=== PATIENT | female | born 1990 | race Caucasian/White ===

== ENCOUNTER 2016-05-22 17:47 | Emergency (ER) | payer SELFPAY ==
[~2016-05-22 17:47] MED LIST: AMO500 PO; CEPH-443 PO; IBUP-1542 PO; KETO15CR TOP; PHEN-537 PO
[2016-05-23] MEDS ORDERED: LORA10CA PO (14:36)
[2016-05-23] MEDS ORDERED: AMO500 PO (14:36)
[2016-05-23] MEDS ORDERED: PSEU120T51 PO (14:36)
== END 2016-05-22 18:31 | disposition left against medical advice (07) ==
LOC: E/R 17:47
DX: Z53.21 Procedure and treatment not carried out due to patient leaving prior to being seen by health care provider (principal)

== ENCOUNTER 2016-05-23 12:29 | Emergency (ER) | payer OTHER ==
[~2016-05-23] VITALS: Ht 160 cm; Wt 81.5 kg
[2016-05-23 13:11] VITALS: Ht 160 cm; Wt 81.5 kg
[2016-05-23] MEDS ORDERED: PSEU120T51 PO (14:36)
[2016-05-23] MEDS ORDERED: LORA10CA PO (14:36)
[2016-05-23] MEDS ORDERED: AMO500 PO (14:36)
[2016-05-23 14:45] VITALS: BP 127/82; PULSE 78; RESP 16
--- NOTE | 2016-05-23 14:54 | ERD ---
ER Documentation Chief Complaint Date/Time DATE: 05/23/16 TIME: 14:[address] X 2 days and R ear pain. HPI 26-year-old female comes in with right ear pain and sore throat for 2 days. Patient describes as fullness, and feeling that her ear is muffled. She denies any voice changes, drooling or cough. She does report congestion associated with this. ROS All systems reviewed and are negative except as per history of present illness. Medications Home Meds Active Scripts Loratadine* (Claritin*) 10 Mg Capsule, 10 MG PO DAILY, #20 CAP Prov:CHERI SORTO PA-C 05/23/16 Pseudoephedrine Hcl (Sudafed 12 Hour) 120 Mg Tablet.sa, 120 MG PO BID, #6 Prov:CHERI SORTO PA-C 05/23/16 Amoxicillin* (Amoxicillin*) 500 Mg Cap, 500 MG PO TID for 7 Days, CAP Prov:CHERI SORTO PA-C 05/23/16 Phenazopyridine Hcl* (Pyridium*) 100 Mg Tab, 100 MG PO TID Y for URINARY PAIN, # 8 TAB Prov:CHERI SORTO PA-C 01/10/16 Cephalexin* (Keflex*) 500 Mg Capsule, 500 MG PO QID for 7 Days, CAP Prov:CHERI SORTO PA-C 01/10/16 Ketoconazole* (Ketoconazole*) 60 Gm Cream.gm., 1 APPLIC TOP BID for 7 Days, #1 TUB 0 Refills Prov:AYALA BAIG PA-C 11/09/15 Amoxicillin* (Amoxicillin*) 500 Mg Cap, 500 MG PO TID for 7 Days, #21 CAP 0 Refills Prov:AYALA BAIG PA-C 11/09/15 Ibuprofen* (Motrin*) 600 Mg Tab, 600 MG PO Q8 for 10 Days, #30 TAB 0 Refills Prov:AYALA BAIG PA-C 11/09/15 Allergies Allergies: Coded Allergies: No Known Allergy (Unverified , 05/23/16) PMhx/Soc Medical and Surgical Hx: pt denies Medical Hx, pt denies Surgical Hx History of Surgery: No Anesthesia Reaction: No Hx Neurological Disorder: No Hx Respiratory Disorders: No Hx Cardiac Disorders: No Hx Psychiatric Problems: No Hx Miscellaneous Medical Probl: No Hx Alcohol Use: No Hx Substance Use: No Hx Tobacco Use: No Smoking Status: Never smoker Physical Exam Vitals Vital Signs Date Time Temp Pulse Resp B/P Pulse Ox O2 Delivery O2 Flow Rate FiO2 05/23/16 14:45 78 16 127/82 100 Room Air 05/23/16 13:11 98.1 78 16 129/73 97 Physical Exam General: Well-developed, well-nourished. The patient appears in no acute distress. HEENT: Head is normocephalic, atraumatic. No scleral icterus. Bilateral ears have bulging tympanic membrane, mild erythema to the right side, no perforation otorrhea or discharge. Neck: Supple. Nontender. Lungs: Clear to auscultation. Normal air movement. Heart: Regular rate and rhythm. S1 and S2 are normal. No murmurs, gallops, or rubs. Abdomen: Nondistended. Extremities: No clubbing or cyanosis. Moving extremities x 4. No weakness. Neurologic: Alert and oriented 3. No focal deficits. Normal speech and gait. Skin: Normal turgor. No rash or lesions. Procedures/MDM 26-year-old female comes in with a viral pharyngitis, and serous otitis media. I believe that her ear is likely due to a viral infection, she will be given decongestants to try, if no improvement Rx antibiotics may be filled. No signs of any mastoiditis, sepsis, deep space infection. Departure Diagnosis: Primary Impression: Right ear pain Additional Impression: Sore throat Condition: Good Patient Instructions: Pharyngitis, Viral, Otitis Media, Wait And See Abx Tx ( Child Over 6 Mo) Additional Instructions: Call your primary care doctor TOMORROW for an appointment during the next 1-2 days.See the doctor sooner or return here if your condition worsens before your appointment time. CHERI SORTO PA-C May 23, 2016 14:54
== END 2016-05-23 14:49 | disposition home or self-care (01) ==
LOC: FTE 12:29
DX: H92.01 Otalgia, right ear (principal); J02.9 Acute pharyngitis, unspecified
CPT/HCPCS: 99283